=== PATIENT | male | born 1950 | race Asian ===

== ENCOUNTER 2017-06-23 08:09 | Outpatient (CLI) | payer OTHER ==
[2017-06-23 08:26] LABS: PLATELET COUNT 178 K/uL (142-355)
[2017-06-23 08:54] LABS: POTASSIUM 4.2 mmol/L (3.6-5.2); SODIUM 138 mmol/L (136-145)
== END 2017-06-23 21:59 | disposition home or self-care (01) ==
LOC: LABW 08:09
PROVIDERS: Internal Medicine
DX: I10 Essential (primary) hypertension (principal); D50.8 Other iron deficiency anemias; E11.9 Type 2 diabetes mellitus without complications; E78.00 Pure hypercholesterolemia, unspecified
CPT/HCPCS: 36415; 80053; 80061; 81000; 82043; 82570; 83036; 83540; 84443; 85027

== ENCOUNTER 2018-05-10 07:02 | Outpatient (CLI) | payer OTHER ==
[2018-05-10 08:27] LABS: POTASSIUM 4.9 mmol/L (3.6-5.2)
[2018-05-10 08:34] LABS: PLATELET COUNT 176 K/uL (142-355)
== END 2018-05-10 20:09 | disposition home or self-care (01) ==
LOC: LABW 07:02
PROVIDERS: Internal Medicine
DX: E11.9 Type 2 diabetes mellitus without complications (principal)
CPT/HCPCS: 36415; 80053; 80061; 81000; 83036; 84443; 85027

== ENCOUNTER 2019-02-09 06:31 | Outpatient (CLI) | payer OTHER ==
[2019-02-09 07:21] LABS: PLATELET COUNT 209 K/uL (142-355)
[2019-02-09 07:40] LABS: POTASSIUM 5.2 mmol/L (3.6-5.2)
== END 2019-02-09 21:44 | disposition home or self-care (01) ==
LOC: LABW 06:31
PROVIDERS: Internal Medicine
DX: Z00.00 Encounter for general adult medical examination without abnormal findings (principal); Z12.5 Encounter for screening for malignant neoplasm of prostate; E11.9 Type 2 diabetes mellitus without complications; I10 Essential (primary) hypertension
CPT/HCPCS: 36415; 80053; 80061; 81000; 84153; 84439; 84443; 85027

== ENCOUNTER 2019-07-04 06:43 | Outpatient (CLI) | payer OTHER ==
[2019-07-04 07:38] LABS: POTASSIUM 5.2 mmol/L (3.6-5.2)
[2019-07-04 10:18] LABS: PLATELET COUNT 188 K/uL (142-355)
== END 2019-07-04 21:06 | disposition home or self-care (01) ==
LOC: LABW 06:43
PROVIDERS: Internal Medicine
DX: I10 Essential (primary) hypertension (principal); D50.8 Other iron deficiency anemias; I67.9 Cerebrovascular disease, unspecified; E11.9 Type 2 diabetes mellitus without complications
CPT/HCPCS: 36415; 80053; 80061; 81000; 82043; 82570; 83036; 83540; 84439; 84443; 85027

== ENCOUNTER 2019-12-14 06:42 | Outpatient (CLI) | payer OTHER ==
[2019-12-14 07:46] LABS: POTASSIUM 4.2 mmol/L (3.6-5.2)
[2019-12-14 08:18] LABS: PLATELET COUNT 197 K/uL (142-355)
== END 2019-12-14 19:33 | disposition home or self-care (01) ==
LOC: LAB 06:42
PROVIDERS: Internal Medicine
DX: I67.9 Cerebrovascular disease, unspecified (principal); D50.8 Other iron deficiency anemias; E11.9 Type 2 diabetes mellitus without complications
CPT/HCPCS: 36415; 80053; 80061; 81000; 82043; 82570; 83036; 83540; 84439; 84443; 85027

== ENCOUNTER 2020-08-20 06:18 | Outpatient (CLI) | payer OTHER ==
[2020-08-20 06:50] LABS: PLATELET COUNT 181 K/uL (142-355)
[2020-08-20 08:45] LABS: POTASSIUM 4.6 mmol/L (3.6-5.2)
== END 2020-08-20 19:24 | disposition home or self-care (01) ==
LOC: LABW 06:18
PROVIDERS: ATTEND Internal Medicine
DX: E11.9 Type 2 diabetes mellitus without complications (principal)
CPT/HCPCS: 36415; 80053; 80061; 81000; 82043; 83036; 84439; 84443; 85027

== ENCOUNTER 2020-11-17 15:03 | Outpatient (CLI) | payer OTHER | END 2020-11-17 21:51 | disposition home or self-care (01) | LOC: RAD 15:03 | PROVIDERS: ATTEND Internal Medicine | DX: M79.672 Pain in left foot (principal) ==

== ENCOUNTER 2022-03-18 13:21 | Outpatient (CLI) | payer OTHER ==
[2022-03-18 14:22] LABS: POTASSIUM 5.5 mmol/L (3.6-5.2)
== END 2022-03-18 19:16 | disposition home or self-care (01) ==
LOC: LAB 13:21
PROVIDERS: ATTEND Internal Medicine
DX: E11.9 Type 2 diabetes mellitus without complications (principal)
CPT/HCPCS: 80053; 83036; 84439; 84443

== ENCOUNTER 2022-04-01 12:29 | Outpatient (CLI) | payer OTHER | END 2022-04-01 19:16 | disposition home or self-care (01) | LOC: LAB 12:29 | PROVIDERS: ATTEND Internal Medicine | DX: E87.5 Hyperkalemia (principal); E83.52 Hypercalcemia | CPT/HCPCS: 80053; 83735 ==

== ENCOUNTER 2022-04-16 11:27 | Outpatient (CLI) | payer OTHER ==
[2022-04-16 12:24] LABS: POTASSIUM 5.1 mmol/L (3.6-5.2)
== END 2022-04-16 19:07 | disposition home or self-care (01) ==
LOC: LAB 11:27
PROVIDERS: ATTEND Internal Medicine
DX: I10 Essential (primary) hypertension (principal); E87.5 Hyperkalemia; E83.52 Hypercalcemia
CPT/HCPCS: 80053

== ENCOUNTER 2022-06-30 15:09 | Outpatient (CLI) | payer OTHER ==
[2022-06-30 15:34] LABS: PLATELET COUNT 174 K/uL (142-355)
[2022-06-30 16:11] LABS: POTASSIUM 5.1 mmol/L (3.6-5.2)
== END 2022-06-30 19:32 | disposition home or self-care (01) ==
LOC: LAB 15:09
PROVIDERS: ATTEND Internal Medicine
DX: Z00.00 Encounter for general adult medical examination without abnormal findings (principal); Z12.5 Encounter for screening for malignant neoplasm of prostate; N40.0 Benign prostatic hyperplasia without lower urinary tract symptoms; Z79.899 Other long term (current) drug therapy
CPT/HCPCS: 80053; 80061; 81002; 84153; 84439; 84443; 85027

== ENCOUNTER 2022-12-20 13:10 | Outpatient (CLI) | payer OTHER ==
[2022-12-20 13:47] LABS: PLATELET COUNT 191 K/uL (142-355); POTASSIUM 4.9 mmol/L (3.6-5.2)
== END 2022-12-20 20:49 | disposition home or self-care (01) ==
LOC: LAB 13:10
PROVIDERS: ATTEND Internal Medicine
DX: E11.9 Type 2 diabetes mellitus without complications (principal); I10 Essential (primary) hypertension; D50.8 Other iron deficiency anemias
CPT/HCPCS: 80053; 80061; 81002; 82043; 83036; 83540; 84439; 84443; 85027